=== PATIENT | female | born 1970 | race Caucasian/White ===

== ENCOUNTER 2019-01-09 05:59 | Day surgery (SDC) | payer MEDICARE, MEDICAID ==
[~2019-01-09] VITALS: Ht 160 cm; Wt 115.7 kg
[~2019-01-09 05:59] MED LIST: BLOO-1139 TOP; CALC-723 PO; CYCL-1 PO; DICL100G30 TOP; DOCU-267 PO; ESOM40CA49 PO; GABA600T13 PO; GLUC15006 PO; HYDR-3965 PO; HYDR25TA4 PO; INSU100V12 SQ; INSU100V13 SQ; LISI10TA4 PO; MELO-100 PO; METF-438 PO; METO10TA3 PO; NYSPWD TOP; PARO20TA6 PO; POLY17PO10 PO; ROSU20TA2 PO; VARE1TAB22 PO; VITA-268 PO; cefazolin/dext.iso 2gm/100 ML IV ONE; famotidine 20mg tablet PO ONE; ringers solution, lacted 1,000 ML IV SCH
[2019-01-09 06:15] VITALS: BP 118/79
[2019-01-09] MEDS ORDERED: LIDOcaine 1% (10mg/ml) 2ml vial ONE (06:15)
[2019-01-09] MEDS ORDERED: BUPIVAcaine/PF 2.5mg/ml (0.25%) 10ml vial ONE ×2 (06:25→06:38)
[2019-01-09 06:31] LABS: BASOPHILS # (AUTO) 0.1 X10'3 (0-0.2); BASOPHILS % (AUTO) 0.6 % (0-1); EOSINOPHILS # (AUTO) 0.2 X10'3 (0-0.9); HEMATOCRIT 38.1 % (35.0-45.0); HEMOGLOBIN 12.2 g/dl (12.0-16.0); LYMPHOCYTES # (AUTO) 3.9 X10'3 (1.1-4.8); LYMPHOCYTES % (AUTO) 44.5 % (21-51); MEAN CORPUSCULAR HEMOGLOBIN 25.6 PG (27.0-31.0); MEAN PLATELET VOLUME 8.8 FL (7.4-10.4); MONOCYTES # (AUTO) 0.6 X10'3 (0-0.9); MONOCYTES % (AUTO) 6.4 % (2-12); NEUTROPHILS # (AUTO) 4.1 X10'3 (1.8-7.7); NEUTROPHILS % (AUTO) 46.5 % (42-75); PLATELET COUNT 331 X10'3 (140-440); RED BLOOD COUNT 4.76 X10'6 (4.20-5.60); WHITE BLOOD COUNT 8.9 X10'3 (4.5-11.0)
[2019-01-09 06:53] LABS: ALANINE AMINOTRANSFERASE 88 U/L (12-78); ALBUMIN/GLOBULIN RATIO 1.1 (1.1-1.5); ALKALINE PHOSPHATASE 81 IU/L (46-116); ANION GAP 10 (8-16); ASPARTATE AMINO TRANSFERASE 57 U/L (10-37); BILIRUBIN,TOTAL 0.3 MG/DL (0.1-1.0); BLOOD UREA NITROGEN 29 MG/DL (7-18); BUN/CREATININE RATIO 28.2 (6.6-38.0); CALCIUM 9.7 MG/DL (8.5-10.1); CHLORIDE 104 MMOL/L (99-107); CREATININE 1.03 MG/DL (0.40-0.90); GLUCOSE 223 MG/DL (70-104); POTASSIUM 4.8 MMOL/L (3.5-5.1); SODIUM 141 MMOL/L (135-145); TOTAL CARBON DIOXIDE 26.6 MMOL/L (24-32); TOTAL PROTEIN 7.6 G/DL (6.4-8.2); eGFR 57 ML/MIN
[2019-01-09] MEDS ORDERED: LIDOcaine 0.5% (5mg/ml) 50ml vial ONE (07:08)
[2019-01-09] MEDS ORDERED: midazolam 2 mg/2 ml injection ONE (07:12)
[2019-01-09] MEDS ORDERED: meperidine/PF 25mg/ml syringe IV PRN ×3 (07:25)
[2019-01-09] MEDS ORDERED: ondansetron/PF 4mg/2ml inj IV PRN (07:25)
[2019-01-09] MEDS ORDERED: morphine 4 MG/ML inj SYRINge IV PRN ×2 (07:25)
[2019-01-09] MEDS ORDERED: proCHLORperazine 10 MG/2 ml inj IV PRN (07:25)
[2019-01-09] MEDS ORDERED: ringers solution, lacted 1,000 ML IV SCH (07:25)
--- NOTE | 2019-01-09 07:35 | NUR ---
LAB RESULTS OBTAINED @ 0730. GLUCOSE 223, DR ABRAHAM AND [employer] DRIVER NOTIFIED-PT TAKEN TO THE OR Addendum: 01/09/19 at 0752 by Rosetta Garcia RN Amended: Links added.
[2019-01-09] MEDS ORDERED: propofol inj 20 ML IV ONE (07:59)
[2019-01-09 08:01] VITALS: BP 118/70
--- NOTE | 2019-01-09 08:01 | NUR ---
Received from OR via , accompanied by Anesthesiologist LEIGH and report given by Anesthesiolgist. AWAKE VS WNL NO CO PAIN DSG DI RUE ELEVATED, FINGERS WARM PINK GOOD CAP REFILL.
[2019-01-09 08:11] VITALS: BP 121/82
[2019-01-09 08:21] VITALS: BP 126/86
[2019-01-09 08:31] VITALS: BP 121/82
[2019-01-09 08:41] VITALS: BP 119/81
--- NOTE | 2019-01-09 08:51 | NUR ---
AWAKE VS WNL NO CO PAIN DSG DI, MOVES FINGERS, GOOD CAP REFILL ICE TO WRIST. DISCH INST GIVEN TO PT AND UNDERSTOOD, HOME WITH HIUSBAND
== END 2019-01-09 08:51 | disposition home or self-care (01) ==
LOC: PAS 05:59
PROVIDERS: ATTEND Orthopaedic Surgery Hand Surgery
DX: G56.01 Carpal tunnel syndrome, right upper limb (principal); F12.90 Cannabis use, unspecified, uncomplicated; E11.9 Type 2 diabetes mellitus without complications; M19.90 Unspecified osteoarthritis, unspecified site; K21.9 Gastro-esophageal reflux disease without esophagitis; Z79.4 Long term (current) use of insulin; I10 Essential (primary) hypertension; Z90.710 Acquired absence of both cervix and uterus; Z79.899 Other long term (current) drug therapy; Z88.2 Allergy status to sulfonamides; Z87.891 Personal history of nicotine dependence; Z72.89 Other problems related to lifestyle; Z98.890 Other specified postprocedural states
CPT/HCPCS: 29848; 36415; 80053; 85025; J2001; J2250; J2704; J3490; A4215; A6446; J7120

== ENCOUNTER 2019-01-19 17:17 | Emergency (ER) | payer MEDICARE, MEDICAID ==
[~2019-01-19] VITALS: Ht 160 cm; Wt 118.2 kg
[~2019-01-19 17:17] MED LIST changes: -cefazolin/dext.iso 2gm/100 ML IV ONE; -famotidine 20mg tablet PO ONE; -ringers solution, lacted 1,000 ML IV SCH
[2019-01-19] MEDS ORDERED: normal saline 1000ml 1,000 ML IV ONE (18:20)
[2019-01-19] MEDS ORDERED: ESOMEPRAZOLE 40 MG VIAL IV ONE (18:23)
[2019-01-19] MEDS ORDERED: pantoprazole 40 MG vial IV ONE (18:25)
[2019-01-19] MEDS ORDERED: ondansetron/PF 4mg/2ml inj IV ONE (18:25)
[2019-01-19 18:33] LABS: ALANINE AMINOTRANSFERASE 106 U/L (12-78); ALKALINE PHOSPHATASE 85 IU/L (46-116); ANION GAP 12 (8-16); ASPARTATE AMINO TRANSFERASE 51 U/L (10-37); BILIRUBIN,TOTAL 0.2 MG/DL (0.1-1.0); BLOOD UREA NITROGEN 38 MG/DL (7-18); BUN/CREATININE RATIO 29.5 (6.6-38.0); CALCIUM 9.6 MG/DL (8.5-10.1); CHLORIDE 104 MMOL/L (99-107); CREATININE 1.29 MG/DL (0.40-0.90); GLUCOSE 283 MG/DL (70-104); POTASSIUM 4.9 MMOL/L (3.5-5.1); SODIUM 137 MMOL/L (135-145); TOTAL CARBON DIOXIDE 21.4 MMOL/L (24-32); TOTAL PROTEIN 7.9 G/DL (6.4-8.2); eGFR 44 ML/MIN
[2019-01-19 18:35] LABS: BASOPHILS % (AUTO) 0.1 % (0-1); EOSINOPHILS # (AUTO) 0.2 X10'3 (0-0.9); EOSINOPHILS % (AUTO) 1.9 % (0-6); HEMATOCRIT 40.1 % (35.0-45.0); HEMOGLOBIN 12.6 g/dl (12.0-16.0); LYMPHOCYTES # (AUTO) 3.7 X10'3 (1.1-4.8); LYMPHOCYTES % (AUTO) 31.9 % (21-51); MEAN CORPUSCULAR HEMOGLOBIN 25.2 PG (27.0-31.0); MEAN CORPUSCULAR HGB CONC 31.5 g/dL (33.0-36.5); MEAN CORPUSCULAR VOLUME 79.9 FL (78-98); MEAN PLATELET VOLUME 9.5 FL (7.4-10.4); MONOCYTES # (AUTO) 0.8 X10'3 (0-0.9); MONOCYTES % (AUTO) 6.6 % (2-12); NEUTROPHILS # (AUTO) 6.9 X10'3 (1.8-7.7); NEUTROPHILS % (AUTO) 59.5 % (42-75); PLATELET COUNT 397 X10'3 (140-440); RED BLOOD COUNT 5.02 X10'6 (4.20-5.60); RED CELL DISTRIBUTION WIDTH 17.4 % (11.5-14.5); WHITE BLOOD COUNT 11.6 X10'3 (4.5-11.0)
[2019-01-19] MEDS ORDERED: LOPE2CAP PO (19:59)
[2019-01-19] MEDS ORDERED: FAMO-128 PO (19:59)
[2019-01-19] MEDS ORDERED: ONDA8TAB6 PO (19:59)
[2019-01-19] MEDS ORDERED: famotidine 20mg tablet PO ONE (20:00)
[2019-01-19] MEDS ORDERED: loperamide 2mg capsule PO ONE (20:00)
[2019-01-19 20:18] VITALS: BP 97/42
[2019-01-21 11:42] LABS: OCCULT BLOOD STOOL NEGATIVE (Neg)
== END 2019-01-19 20:22 | disposition home or self-care (01) ==
LOC: ER 17:17
DX: K52.9 Noninfective gastroenteritis and colitis, unspecified (principal); R10.13 Epigastric pain; E78.00 Pure hypercholesterolemia, unspecified; I10 Essential (primary) hypertension; J45.909 Unspecified asthma, uncomplicated; E11.9 Type 2 diabetes mellitus without complications; F12.90 Cannabis use, unspecified, uncomplicated; Z87.11 Personal history of peptic ulcer disease; Z90.49 Acquired absence of other specified parts of digestive tract; Z90.710 Acquired absence of both cervix and uterus; Z98.890 Other specified postprocedural states; Z88.2 Allergy status to sulfonamides; Z79.899 Other long term (current) drug therapy; Z79.4 Long term (current) use of insulin
CPT/HCPCS: 36415; 80053; 82272; 85025; 85610; 86885; 86900; 86901; 96374; 96375; 99283; J2405; J7030

== ENCOUNTER 2022-08-28 16:44 | Emergency (ER) | payer MEDICARE, MEDICAID ==
[~2022-08-28] VITALS: Ht 160 cm; Wt 125.0 kg
[~2022-08-28 16:44] MED LIST changes: +DOCU-262 PO; -DOCU-267 PO; +FAMO-128 PO; +LISI10TA27 PO; -LISI10TA4 PO; +LOPE2CAP PO; +ONDA8TAB6 PO
[2022-08-28 16:47] VITALS: BP 170/87
[2022-08-28] MEDS ORDERED: ketorolac trometh inj. 60 MG/2 ML VIAL IM ONE (19:45)
[2022-08-28] MEDS ORDERED: HYDROcodone/acetaminophen 10/325mg tab PO ONE (19:45)
[2022-08-28] MEDS ORDERED: HYDR-3972 PO (20:24)
== END 2022-08-28 20:53 | disposition home or self-care (01) ==
LOC: ER 16:44
DX: M25.552 Pain in left hip (principal); E78.00 Pure hypercholesterolemia, unspecified; I10 Essential (primary) hypertension; J45.909 Unspecified asthma, uncomplicated; E11.9 Type 2 diabetes mellitus without complications; F12.10 Cannabis abuse, uncomplicated; Z87.81 Personal history of (healed) traumatic fracture; Z98.890 Other specified postprocedural states; Z88.2 Allergy status to sulfonamides; Z79.899 Other long term (current) drug therapy; Z79.1 Long term (current) use of non-steroidal anti-inflammatories (NSAID); Z79.2 Long term (current) use of antibiotics
CPT/HCPCS: 73564; 96372; 99283; J1885; A6449

== ENCOUNTER 2023-01-06 22:24 | Emergency (ER) | payer MEDICARE, MEDICAID ==
[~2023-01-06] VITALS: Ht 160 cm; Wt 127.3 kg
[2023-01-06 22:29] VITALS: BP 151/93; PULSE 98; RESP 16; TEMP 97.6; O2SAT 98
[2023-01-07] MEDS ORDERED: TETanus/Pertussis (Acell)/Diphther VAC/PF (Tdap-Adult) 0.5ml syringe IMVAC ONE (00:45)
[2023-01-07] MEDS ORDERED: CEPH250T PO (00:49)
[2023-01-07] MEDS ORDERED: cephalexin 250mg capsule PO ONE (00:50)
--- NOTE | 2023-01-07 01:12 | NUR ---
DRESSING APPLIED TO LAC REPAIR. DERMABOND EDUCATION GIVEN
== END 2023-01-07 01:13 | disposition home or self-care (01) ==
LOC: ER 22:25
DX: S61.411A Laceration without foreign body of right hand, initial encounter (principal); E78.00 Pure hypercholesterolemia, unspecified; I10 Essential (primary) hypertension; E11.9 Type 2 diabetes mellitus without complications; G89.29 Other chronic pain; M54.9 Dorsalgia, unspecified; Z87.81 Personal history of (healed) traumatic fracture; Z90.49 Acquired absence of other specified parts of digestive tract; W45.8XXA Other foreign body or object entering through skin, initial encounter; Y93.89 Activity, other specified; Y92.89 Other specified places as the place of occurrence of the external cause; Y99.8 Other external cause status
CPT/HCPCS: 12002; 90471; 90715; 99283